=== PATIENT | female | born 1955 | race Caucasian/White ===

== ENCOUNTER 2018-08-10 16:39 | Emergency (ER) | payer OTHER ==
[~2018-08-10] VITALS: Ht 157.5 cm; Wt 79.5 kg
[2018-08-10 16:53] VITALS: BP 151/72
[2018-08-10] MEDS ORDERED: HYDROcodone/acetaminophen 5mg/325mg tablet PO ONE (19:20)
[2018-08-10] MEDS ORDERED: HYDR-4383 PO (20:11)
--- NOTE | 2018-08-11 10:14 | NUR ---
Radiology discrepancy called to Dr. Omalley. Pt. called informed of multiple rib fractures. Is returning today to [place]. States pain is 9. Discussed with Dr. Omalley, the plan is for the patient to return to ED for adequate pain control to make the trip to [place] and then follow up with [facility] in [place].
[2018-08-11] MEDS ORDERED: LIDO700A32 TOP (13:39)
== END 2018-08-10 19:34 | disposition home or self-care (01) ==
LOC: ER 16:39
DX: M25.512 Pain in left shoulder (principal); R07.81 Pleurodynia; Z90.710 Acquired absence of both cervix and uterus
CPT/HCPCS: 71101; 73030; 99283

== ENCOUNTER 2018-08-11 13:12 | Emergency (ER) | payer OTHER ==
[~2018-08-11] VITALS: Ht 157.5 cm; Wt 79.0 kg
[~2018-08-11 13:12] MED LIST: HYDR-4383 PO
[2018-08-11] MEDS ORDERED: morphine 4 MG/ML inj SYRINge IM ONE (13:35)
[2018-08-11] MEDS ORDERED: ondansetron 4mg rapidly disintigrating tab PO ONE (13:35)
[2018-08-11] MEDS ORDERED: LIDOcaine 5% patch TP ONE (13:35)
[2018-08-11] MEDS ORDERED: LIDO700A32 TOP (13:39)
[2018-08-11 13:59] VITALS: BP 145/58
== END 2018-08-11 14:00 | disposition home or self-care (01) ==
LOC: ER 13:12
DX: S22.42XA Multiple fractures of ribs, left side, initial encounter for closed fracture (principal); Z90.710 Acquired absence of both cervix and uterus; Z79.899 Other long term (current) drug therapy; W18.39XA Other fall on same level, initial encounter; Y93.89 Activity, other specified; Y92.89 Other specified places as the place of occurrence of the external cause; Y99.8 Other external cause status
CPT/HCPCS: 96372; 99283; J2270